=== PATIENT | female | born 1940 | race Caucasian/White ===

== ENCOUNTER → 2020-05-24 | Outpatient (CLI) | payer MEDICARE, OTHER ==
[~2020-05-24] MED LIST: LISI20; TRIHYD253A
== END | disposition home or self-care (01) ==
LOC: PLD 07:42 → LAB SHORT 07:42
DX: L30.8 Other specified dermatitis (principal)
CPT/HCPCS: 88305

== ENCOUNTER 2021-06-02 07:15 | Day surgery (SDC) | payer MEDICARE, OTHER ==
[~2021-06-02] VITALS: Ht 167.6 cm; Wt 70.9 kg
[2021-06-02] MEDS ORDERED: ASPIR 8181 M1 PO (07:37)
--- NOTE | 2021-06-02 07:45 | NUR ---
06/02/21 0745 Evelyn Gallo TETRACAINE AT 0740 PLEDGET IN RIGHT EYE AT 0742
--- NOTE | 2021-06-02 09:19 | NUR ---
06/02/21 0919 Augusta Russell PERIPHERAL LINE TO LEFT HAND DISCONTINUED. CATHETER INTACT.
== END 2021-06-02 09:31 | disposition home or self-care (01) ==
LOC: ORSCSDS 07:15
PROVIDERS: Ophthalmology
PROC: 08RJ3JZ Replacement of Right Lens with Synthetic Substitute, Percutaneous Approach (ICD-10-PCS; principal; 2021-06-02 08:30)
DX: H25.11 Age-related nuclear cataract, right eye (principal); I10 Essential (primary) hypertension; Z87.891 Personal history of nicotine dependence; Z79.82 Long term (current) use of aspirin; Z79.899 Other long term (current) drug therapy
CPT/HCPCS: J2001; J2250; J3010; J3301; J7040; V2632

== ENCOUNTER 2021-06-23 06:19 | Day surgery (SDC) | payer MEDICARE, OTHER ==
[~2021-06-23] VITALS: Ht 167.6 cm; Wt 70.0 kg
[~2021-06-23 06:19] MED LIST changes: +ASPIR 8181 M1 PO
[2021-06-23] MEDS ORDERED: Vitamin D1000 UNI1 PO (06:32)
[2021-06-23] MEDS ORDERED: VITAMIN B-122000 MC1 PO (06:32)
--- NOTE | 2021-06-23 06:36 | NUR ---
06/23/21 0636 JUDY ROWLAND TETRACAINE DROP INSTILLED AT 0633. PLEDGETT INSERTED AT 0636.
== END 2021-06-23 08:10 | disposition home or self-care (01) ==
LOC: ORSCSDS 06:19
PROVIDERS: Ophthalmology
PROC: 08RK3JZ Replacement of Left Lens with Synthetic Substitute, Percutaneous Approach (ICD-10-PCS; principal; 2021-06-23 07:30)
DX: H25.12 Age-related nuclear cataract, left eye (principal); I10 Essential (primary) hypertension; Z87.891 Personal history of nicotine dependence; Z79.82 Long term (current) use of aspirin; Z79.899 Other long term (current) drug therapy
CPT/HCPCS: J2001; J2250; J3010; J3301; J7040; V2632

== ENCOUNTER 2023-10-15 16:05 | Emergency (ER) | payer MEDICARE, OTHER ==
[~2023-10-15] VITALS: Ht 167.6 cm; Wt 70.8 kg
[~2023-10-15 16:05] MED LIST changes: +VITAMIN B-122000 MC1 PO; +Vitamin D1000 UNI1 PO
[2023-10-15 17:03] LABS: BASOPHILS ABSOLUTE AUTO 0.06 K/mm3 (0.00-0.23); BASOPHILS PERCENT AUTO 0 % (0-2); EOSINOPHILS ABSOLUTE AUTO 0.09 K/mm3 (0.00-0.68); EOSINOPHILS PERCENT AUTO 1 % (0-6); Hematocrit 41.5 % (33.0-51.0); Hemoglobin 14.1 g/dL (11.5-16.0); IMMATURE GRAN ABSOLUTE AUTO 0.16 K/mm3 (0.00-0.10); IMMATURE GRAN PERCENT AUTO 1 % (0-1); LYMPHOCYTES ABSOLUTE AUTO 2.51 K/mm3 (0.84-5.20); LYMPHOCYTES PERCENT AUTO 14 % (21-46); MONOCYTES PERCENT AUTO 7 % (4-13); Mean Corpuscular HGB 31.8 pg (26.0-34.0); Mean Corpuscular Volume 94 fL (80-100); NEUTROPHILS ABSOLUTE AUTO 13.42 K/mm3 (1.96-9.15); NEUTROPHILS PERCENT AUTO 77 % (41-73); Platelet Count 219 K/mm3 (150-400); RDW Coefficient Variation 12.5 % (11.7-14.2); RDW Standard Deviation 43.1 fL (35.1-46.3); Red Blood Cell Count 4.44 M/mm3 (3.80-5.20); White Blood Cell Count 17.54 K/mm3 (4.00-11.30)
[2023-10-15 17:25] LABS: Albumin, Blood 3.7 g/dL (3.4-5.0); Albumin/Globulin Ratio 0.8 (0.8-1.8); Bilirubin, Total 0.8 mg/dL (0.1-1.0); Bun/Creatinine Ratio 14.5 (12.0-20.0); Calcium, Blood 9.6 mg/dL (8.5-10.1); Creatinine, Blood 1.31 mg/dL (0.40-1.00); Globulin, Blood 4.6 g/dL (2.2-4.0); Potassium, Blood 3.4 mmol/L (3.5-5.5); Total Protein, Blood 8.3 g/dL (6.4-8.2)
[2023-10-15] MEDS ORDERED: HYDROmorphone HCl/Pf 1MG SYR IV ONE (20:50)
[2023-10-15 21:42] VITALS: BP 142/60
== END 2023-10-15 21:45 | disposition short-term general hospital (02) ==
LOC: ER 16:05
PROVIDERS: Physician Assistant
DX: S13.151A Dislocation of C4/C5 cervical vertebrae, initial encounter (principal); S01.01XA Laceration without foreign body of scalp, initial encounter; M79.671 Pain in right foot; W18.30XA Fall on same level, unspecified, initial encounter; Z79.82 Long term (current) use of aspirin; Z79.899 Other long term (current) drug therapy; Z88.8 Allergy status to other drugs, medicaments and biological substances
CPT/HCPCS: 12002; 70450; 72040; 72070; 72125; 73030; 73630; 80053; 85025; 93005; 93010; 96374-59; 99285-25; J1170

== ENCOUNTER 2024-03-28 18:10 | Inpatient (IN) | payer MEDICARE, OTHER ==
[~2024-03-28] VITALS: Ht 167.6 cm; Wt 70.1 kg
[~2024-03-28 18:10] MED LIST changes: +DYAZIDE 37.5-21 EACH PO; +Prinivil10 MG PO; -TRIHYD253A
[2024-03-28 19:15] LABS: BASOPHILS PERCENT AUTO 1 % (0-2); EOSINOPHILS ABSOLUTE AUTO 0.05 K/mm3 (0.00-0.68); EOSINOPHILS PERCENT AUTO 0 % (0-6); Hematocrit 39.6 % (33.0-51.0); Hemoglobin 13.5 g/dL (11.5-16.0); IMMATURE GRAN ABSOLUTE AUTO 0.14 K/mm3 (0.00-0.10); IMMATURE GRAN PERCENT AUTO 1 % (0-1); LYMPHOCYTES PERCENT AUTO 6 % (21-46); MONOCYTES ABSOLUTE AUTO 1.74 K/mm3 (0.16-1.47); MONOCYTES PERCENT AUTO 9 % (4-13); Mean Corpuscular HGB Conc 34.1 g/dL (31.5-36.5); Mean Corpuscular Volume 91 fL (80-100); Mean Platelet Volume 9.7 fL (9.1-12.4); NEUTROPHILS ABSOLUTE AUTO 16.19 K/mm3 (1.96-9.15); NEUTROPHILS PERCENT AUTO 84 % (41-73); Platelet Count 315 K/mm3 (150-400); RDW Coefficient Variation 13.1 % (11.7-14.2); RDW Standard Deviation 43.9 fL (35.1-46.3); Red Blood Cell Count 4.35 M/mm3 (3.80-5.20); White Blood Cell Count 19.32 K/mm3 (4.00-11.30)
[2024-03-28 19:33] LABS: Albumin, Blood 2.8 g/dL (3.4-5.0); Albumin/Globulin Ratio 0.6 (0.8-1.8); Bilirubin, Total 0.7 mg/dL (0.1-1.0); Bun/Creatinine Ratio 24.1 (12.0-20.0); Creatinine, Blood 1.58 mg/dL (0.40-1.00); Potassium, Blood 3.8 mmol/L (3.5-5.5); Total Protein, Blood 7.8 g/dL (6.4-8.2)
[2024-03-28] MEDS ORDERED: GABA400 PO (21:22)
[2024-03-28] MEDS ORDERED: CefTRIAXone Sodium 1,000 MG in NS 50 ML IV ONE (22:30)
[2024-03-28] MEDS ORDERED: NS 1,000 ML IV SCH ×3 (22:30→23:20)
[2024-03-28] MEDS ORDERED: FLU VACC TS2024-25(6MOS UP)/PF 45 MCG/0.5 ML SYRINGE IM ONE (23:20)
[2024-03-28] MEDS ORDERED: Doxycycline Hyclate 100 MG in Dextrose 5% 250 ML IV SCH (23:25)
[2024-03-28 23:28] LABS: CORONAVIRUS COVID-19 AG Negative (NEGATIVE); INFLUENZA A AG Negative (NEGATIVE); INFLUENZA B AG Negative (NEGATIVE)
[2024-03-28] MEDS ORDERED: NS 500 ML IV ONE (23:35)
[2024-03-28] MEDS ORDERED: Apixaban 5 MG Tab PO SCH (23:44)
[2024-03-28] MEDS ORDERED: GuaiFENesin 600 MG TabCR PO PRN (23:55)
[2024-03-28] MEDS ORDERED: Lidocaine 4% 1 Patch TOP PRN (23:55)
[2024-03-28] MEDS ORDERED: Acetaminophen 325 MG TABLET PO PRN (23:55)
[2024-03-28] MEDS ORDERED: Benzonatate 100 MG Cap PO PRN (23:55)
[2024-03-29] VITALS (7 sets, daily range): BP systolic 100–123; BP diastolic 50–76
[2024-03-29] MEDS ORDERED: Dextromethorphan Polistirix 30 MG/5 ML 5ML Oral Syringe PO PRN (02:35)
--- NOTE | 2024-03-29 05:16 | NUR ---
SHIFT SUMMARY ASSUMED CARE OF PT AT 1900. PT IS A/OX4. HEART SOUNDS IRREGULAR, TELE SHOWS AFIB. PT DENIES HAVING HX OF AFIB. PT IS A POOR HISORIAN. WHEEZING IN THE R LING, PT REMAINED ON RA T/O THE NOC. PT HAS DRY HACKING COUGH. PRN MEDCATIONS GIVEN. HOSPITALIST NOTIED AND PERSCRIBED AFTER REVIEWING CHART. PT A SBA TO BED TRASNFER. WICKING SYSTEM USED DUE TO INCONTIENCE WITH COUGHING. URINE CLEAR AND YELLOW.
[2024-03-29 05:26] LABS: BASOPHILS ABSOLUTE AUTO 0.06 K/mm3 (0.00-0.23); BASOPHILS PERCENT AUTO 0 % (0-2); EOSINOPHILS ABSOLUTE AUTO 0.12 K/mm3 (0.00-0.68); EOSINOPHILS PERCENT AUTO 1 % (0-6); Hematocrit 32.4 % (33.0-51.0); Hemoglobin 10.9 g/dL (11.5-16.0); IMMATURE GRAN PERCENT AUTO 1 % (0-1); LYMPHOCYTES ABSOLUTE AUTO 1.48 K/mm3 (0.84-5.20); LYMPHOCYTES PERCENT AUTO 10 % (21-46); MONOCYTES ABSOLUTE AUTO 1.56 K/mm3 (0.16-1.47); MONOCYTES PERCENT AUTO 10 % (4-13); Mean Corpuscular HGB 31.3 pg (26.0-34.0); Mean Corpuscular HGB Conc 33.6 g/dL (31.5-36.5); Mean Corpuscular Volume 93 fL (80-100); Mean Platelet Volume 9.9 fL (9.1-12.4); NEUTROPHILS ABSOLUTE AUTO 12.04 K/mm3 (1.96-9.15); NEUTROPHILS PERCENT AUTO 78 % (41-73); Platelet Count 224 K/mm3 (150-400); RDW Coefficient Variation 13.3 % (11.7-14.2); RDW Standard Deviation 45.3 fL (35.1-46.3); Red Blood Cell Count 3.48 M/mm3 (3.80-5.20); White Blood Cell Count 15.36 K/mm3 (4.00-11.30)
[2024-03-29 06:13] LABS: Albumin, Blood 1.9 g/dL (3.4-5.0); Albumin/Globulin Ratio 0.5 (0.8-1.8); Bilirubin, Total 0.7 mg/dL (0.1-1.0); Bun/Creatinine Ratio 26.1 (12.0-20.0); Creatinine, Blood 1.19 mg/dL (0.40-1.00); Globulin, Blood 4.1 g/dL (2.2-4.0); Potassium, Blood 3.6 mmol/L (3.5-5.5)
[2024-03-29] MEDS ORDERED: Albuterol 2.5 MG/3 ML VIAL INH PRN (08:45)
[2024-03-29] MEDS ORDERED: Guaifenesin/Dextromethorphan Syrup 5 ML UDC PO PRN (08:50)
[2024-03-29] MEDS ORDERED: Lactobacil 2-S.Thermo-Bifido 1 1 Cap PO SCH (09:00)
[2024-03-29] MEDS ORDERED: Apixaban 5 MG Tab PO SCH (09:00)
[2024-03-29] MEDS ORDERED: MethylPREDNISolone Sod Succ 125 MG Vial IV SCH (09:00)
[2024-03-29] MEDS ORDERED: Metoprolol Tartrate 25 MG Tab PO SCH (09:00)
[2024-03-29] MEDS ORDERED: Pantoprazole Sodium 20 MG Tab PO SCH (09:00)
--- NOTE | 2024-03-29 11:50 | NUR ---
TRANSFER TO MED FLOOR REPORT GIVEN TO MEDICAL FLOOR RN AT 1145. PT TRANSFERRED BY HOSPITAL BED AT 1151 TO ROOM 305 WITH ALL BELONGINGS ON ROOM AIR. VSS.
[2024-03-29 16:01] LABS: Adenovirus Not Detected (NOT DETECT); Bordetella pertussis Not Detected (NOT DETECT); Chlamydophila pneumoniae Not Detected (NOT DETECT); Coronavirus 229E Not Detected (NOT DETECT); Coronavirus HKU1 Not Detected (NOT DETECT); Coronavirus NL63 Not Detected (NOT DETECT); Coronavirus OC43 Not Detected (NOT DETECT); Human Metapneumovirus Not Detected (NOT DETECT); Human Rhinovirus/Enterovirus Not Detected (NOT DETECT); Influenza A/2009-H1 Not Detected (NOT DETECT); Influenza A/H1 Not Detected (NOT DETECT); Influenza A/H3 Not Detected (NOT DETECT); Influenza B Not Detected (NOT DETECT); Mycoplasma pneumoniae Not Detected (NOT DETECT); Parainfluenza Virus 1 Not Detected (NOT DETECT); Parainfluenza Virus 2 Not Detected (NOT DETECT); Parainfluenza Virus 3 Not Detected (NOT DETECT); Parainfluenza Virus 4 Not Detected (NOT DETECT); Respiratory Syncytial Virus Not Detected (NOT DETECT); SARS-Cov-2 (COVID-19), BioFire Not Detected (NOT DETECT)
--- NOTE | 2024-03-29 17:08 | NUR ---
SHIFT SUMMARY 1200 RECEIVED PT TO RM 305 FROM PCU 11. PT IS A&O, PLEASANT AND CO-OP. UP TO BTHRM WITH SBA USING FWW D/T IV PUMP. PT COULD BE INDEPENDENT WITHOUT PUMP. PT IS CONTINENT OF BOWEL AND BLADDER WITH OCCASSIONAL URGENCY INCONTINENCE. PT RECEIVING IVF'S AND IV ABX. OCCASSIONAL COUGHING EPISODES; MEDICATED PER EMAR WITH TESSALON X1. PT REMAINS ON RA WITH BIOX @ 95%. NO C/O, DENIES FURTHER NEEDS AT THIS TIME. CALL LT IN REACH.
[2024-03-29] MEDS ORDERED: CefTRIAXone Sodium 1,000 MG in NS 100 ML IV SCH (21:00)
[2024-03-30 03:33] VITALS: BP 126/56
[2024-03-30 05:43] LABS: Hemoglobin 10.9 g/dL (11.5-16.0); Mean Corpuscular HGB 30.2 pg (26.0-34.0); Mean Corpuscular Volume 91 fL (80-100); Mean Platelet Volume 10.3 fL (9.1-12.4); Platelet Count 283 K/mm3 (150-400); RDW Coefficient Variation 13.1 % (11.7-14.2); RDW Standard Deviation 43.5 fL (35.1-46.3); Red Blood Cell Count 3.61 M/mm3 (3.80-5.20); White Blood Cell Count 16.03 K/mm3 (4.00-11.30)
--- NOTE | 2024-03-30 05:44 | NUR ---
SHIFT SUMMARY PT ALERT AND ORIENTED TIMES 4 . PT IS ON ROOM AIR, DIET IS REGULAR . PT IS COOPERATIVE WITH CARE FROM STAFF. PT S LEFT AC IV BECAME INFILTRATED AND THUS REMOVED. CATHETER WAS INTACT AND NEW IV WAS PLACED IN RIGHT FORE ARM. PT TOLERATED WELL. ELEVATED LEFT ARM AND MONITORED FOR SWELLING AND SIGNS OF INFECTION. WHICH WERE NOT PRESENT. PT ADMITTED FOR PNEUMONIA. BED IN LOW POSITION, CALL LIGHT WITHIN REACH, RAILS TIMES 2.
[2024-03-30 06:17] LABS: Bun/Creatinine Ratio 26.7 (12.0-20.0); Creatinine, Blood 0.75 mg/dL (0.40-1.00); Potassium, Blood 3.3 mmol/L (3.5-5.5)
[2024-03-30 07:32] VITALS: BP 113/46
[2024-03-30] MEDS ORDERED: Potassium Chloride 20 MEQ TabCR PO ONE (11:50)
[2024-03-30 15:05] VITALS: BP 113/49
--- NOTE | 2024-03-30 17:20 | NUR ---
SHIFT SUMMARY PATIENT ALERT AND INTERACTIVE. FORGETFUL AT TIMES. PATIENT ABLE TO AMBULATE TO THE BR WITH STANDBY ASSIST. PATIENT CONTINUES TO HAVE PRODUCTIVE COUGH. SPUTUM SENT FOR CULTURE. PATIENT UP OOB MULTIPLE TIMES TODAY. PATIENT SHOWERED WITH MINIMAL ASSIST.
[2024-03-30 19:11] VITALS: BP 142/59
[2024-03-30] MEDS ORDERED: MethylPREDNISolone Sod Succ 125 MG Vial IV SCH (21:00)
[2024-03-31 01:38] LABS: Hemoglobin 10.9 g/dL (11.5-16.0); Mean Corpuscular HGB 31.2 pg (26.0-34.0); Mean Corpuscular HGB Conc 34.1 g/dL (31.5-36.5); Mean Corpuscular Volume 92 fL (80-100); Platelet Count 337 K/mm3 (150-400); RDW Coefficient Variation 13.2 % (11.7-14.2); RDW Standard Deviation 43.9 fL (35.1-46.3); Red Blood Cell Count 3.49 M/mm3 (3.80-5.20); White Blood Cell Count 20.22 K/mm3 (4.00-11.30)
[2024-03-31 01:46] LABS: Calcium, Blood 9.2 mg/dL (8.5-10.1); Creatinine, Blood 0.84 mg/dL (0.40-1.00); Potassium, Blood 3.9 mmol/L (3.5-5.5)
[2024-03-31 02:56] VITALS: BP 143/63
--- NOTE | 2024-03-31 05:18 | NUR ---
SHIFT SUMMARY PT IS ALERT AND ORIENTED TIMES 3-4 AT NIGHT. SHE DOES AT TIMES THINKS SHE IS SEEING PEOPLE IN DARK ROOMS STARING AT HER FROM ACROSS THE OTHER SIDE OF THE HOSPITAL AND FAMILY OUTSIDE THAT HAVE PLAYING WITH LITTLE DOGS. HER IV WAS CHANGED AGAIN TO LEFT FOREARM SHE STATED IT BECAME PAINFUL AND TENDER. PT IS RECEPTIVE TO CARE, POLTIE TO STAFF, ABLE TO MAKE NEEDS KNOWN AND AMBULATE WITH STAND BY ASSIST TO THE TOILET. BED IS IN LOW POSITION, RAILS TIMES TWO, AND CALL LIGHT WITHIN REACH. PT ON TELE WITH NORMAL SINUS RHYTHM 83.
[2024-03-31 07:34] VITALS: BP 138/76
--- NOTE | 2024-03-31 08:12 | NUR ---
pt ambulated out in [place] this am pushing her iv poll, gait noted to be steady, a/ox3-4, very forgetful, cooperative with care, follows commands well, denies pain, lungs are clear in all rahman except right base has fine crackles, on r/a, reports occ productive cough of white sputum, hrr, no edema noted, ppp+2, cap refill <3 sec, vs stable, afebrile, piv to lfa site is clear and patent, btx4, abd flat soft nontender, voids without diff, skin c/w/d, maew, marcelo, call light in reach.
[2024-03-31] MEDS ORDERED: PredniSONE 20 MG Tab PO SCH (09:00)
[2024-03-31 15:19] VITALS: BP 150/79
--- NOTE | 2024-03-31 19:28 | NUR ---
pt lost her iv due to infiltration, iv was removed intact, informed discharge rn as she looks to be a hard stick and may need u/s, no further changes this shift, call light in reach.
[2024-03-31 19:57] VITALS: BP 151/74
[2024-04-01 02:04] VITALS: BP 148/74
[2024-04-01 05:11] LABS: Hematocrit 32.6 % (33.0-51.0); Mean Corpuscular HGB Conc 33.7 g/dL (31.5-36.5); Mean Corpuscular Volume 92 fL (80-100); Mean Platelet Volume 9.8 fL (9.1-12.4); Platelet Count 321 K/mm3 (150-400); RDW Coefficient Variation 13.2 % (11.7-14.2); RDW Standard Deviation 44.5 fL (35.1-46.3); Red Blood Cell Count 3.55 M/mm3 (3.80-5.20); White Blood Cell Count 15.24 K/mm3 (4.00-11.30)
[2024-04-01 08:06] VITALS: BP 144/69
[2024-04-01 15:10] VITALS: BP 138/64
--- NOTE | 2024-04-01 16:07 | NUR ---
SHIFT SUMMARY A&OX4, COOEPRATIVE WITH CARE, PLEASANT. ABLE TO MAKE NEEDS KNOWN AND CALL APPROPRIATELY. NO ACUTE EVENTS THIS SHIFT. TELE DC'D DUE TO NO EVENTS OR CONVERSIONS TO AFIB WITHIN THE LAST 24HRS. DENIED ANY CP/PRESSURE, HEADACHE, OR DIZZINESS. SLIGHT SOB WITH EXERTION. CRACKLES IN THE BASES. ROOM AIR AT THIS TIME. PRODUCTIVE COUGH - THICK [place]/YELLOW SPUTUM. CONTINENT. NO REPORTS OF PAIN THIS SHIFT. BED IN THE LOWEST POSITION. CALL LIGHT WITHIN REACH. PLAN FOR DC TOMORROW.
[2024-04-01 19:08] VITALS: BP 150/70
[2024-04-01] MEDS ORDERED: Doxycycline Hyclate 100 MG TAB PO SCH (21:00)
[2024-04-02 02:13] VITALS: BP 134/63
--- NOTE | 2024-04-02 04:10 | NUR ---
SHIFT SUMMARY PATIENT HAD NO ACUTE CHANGES. AXOX 4 AND SBA. DENIES CHEST PAIN, SOB, AND N/V. VSS/AFEBRILE. PIV INTACT. IV ABX INFUSED. ABLE TO MAKE NEEDS KNOW. CALL LIGHT IN REACH. BED IN LOWEST POSITION. WILL CONTINUE TO MONITOR UNTIL DAY SHIFT NURSE ASSUMES CARE.
[2024-04-02 08:30] VITALS: BP 146/71
[2024-04-02] MEDS ORDERED: ALBU90OI INH (10:44)
[2024-04-02] MEDS ORDERED: ELIQUIS5 M2 PO (10:45)
[2024-04-02] MEDS ORDERED: Tessalon200 MG PO (10:46)
[2024-04-02] MEDS ORDERED: TOPROL XL25 MG PO (10:47)
[2024-04-02] MEDS ORDERED: DOXY100 PO (10:47)
[2024-04-02] MEDS ORDERED: PRED20 PO (10:48)
[2024-04-02] MEDS ORDERED: ALBU90OI6 INH (10:53)
[2024-04-02] MEDS ORDERED: GUAI600T33 PO (11:20)
--- NOTE | 2024-04-02 12:15 | NUR ---
PATIENT EDUCATED ON DISCHARGE PACKET AND NEW PRESCRIPTIONS. [employer] DISCOUNT CARD AND PROVIDER FORM GIVEN TO PATIENT TO HELP WITH COST. NO NEW QUESTIONS OR CONCERNS. ABY PICKED PATIENT UP. ESCORTED DOWNT O VEHICLE VIA WHEELCHAIR. BELONGINGS GATHERED AND RETURNED.
== END 2024-04-02 13:00 | disposition home or self-care (01) | DRG 871 ==
LOC: ER 18:10 → ERHOLD 03-29 00:35 → PCU 03-29 00:35 → MEDS 03-29 00:35 → PCU 03-29 01:14 → MEDS 03-29 11:52 → ENPENDDIS 04-02 10:55 → MEDS 04-02 13:00
PROVIDERS: Emergency Medicine; Family Medicine; Internal Medicine; Physician Assistant; ADMIT Student in an Organized Health Care Education/Training Program
DX: A41.9 Sepsis, unspecified organism (principal); J18.9 Pneumonia, unspecified organism; N17.9 Acute kidney failure, unspecified; E87.1 Hypo-osmolality and hyponatremia; R65.20 Severe sepsis without septic shock; I12.9 Hypertensive chronic kidney disease with stage 1 through stage 4 chronic kidney disease, or unspecified chronic kidney disease; M54.2 Cervicalgia; N18.30 Chronic kidney disease, stage 3 unspecified; M54.9 Dorsalgia, unspecified; J45.909 Unspecified asthma, uncomplicated; I48.91 Unspecified atrial fibrillation; Z79.82 Long term (current) use of aspirin; Z79.899 Other long term (current) drug therapy; Z79.811 Long term (current) use of aromatase inhibitors
CPT/HCPCS: 0202U; 36415; 71046; 72125; 80048; 80053; 83605; 85025; 85027; 87040; 87070; 87205; 87428-QW; 93005; 93010; 94640; 94664; 94760; 94762; 96365; 99285-25; A9270; J0696; J2470; J2919; J7030; J7040; J7060; J7512

== ENCOUNTER 2024-06-08 14:12 | Emergency (ER) | payer MEDICARE, OTHER ==
[~2024-06-08] VITALS: Ht 167.6 cm; Wt 69.8 kg
[~2024-06-08 14:12] MED LIST changes: +ALBU90OI INH; +ALBU90OI6 INH; +DOXY100 PO; +ELIQUIS5 M2 PO; +GABA400 PO; +GUAI600T33 PO; +PRED20 PO; +TOPROL XL25 MG PO; +Tessalon200 MG PO
[2024-06-08 14:48] VITALS: BP 197/98
== END 2024-06-08 17:57 | disposition home or self-care (01) ==
LOC: ER 14:12
DX: M25.552 Pain in left hip (principal); Z88.5 Allergy status to narcotic agent; I48.91 Unspecified atrial fibrillation; Z79.01 Long term (current) use of anticoagulants; Z79.899 Other long term (current) drug therapy; Z79.4 Long term (current) use of insulin
CPT/HCPCS: 73502; 99283-25